=== PATIENT | male | born 1955 | race Caucasian/White ===

== ENCOUNTER 2017-10-14 18:19 | Emergency (ER) | payer BC ==
[2017-10-14] MEDS ORDERED: Lidocaine 1% with EPINEPHrine 1:100,000 50 ML MDV SUBCUT STA (18:26)
[2017-10-14] MEDS ORDERED: Bacitracin Oint 1 GM U/D Packet TOP ONE (18:26)
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
[2017-10-14] MEDS ORDERED: Diphtheria,Pertussis(Acell),Tetanus Vaccine 0.5 ML SDV IM ONE (19:05)
[2017-10-14] MEDS ORDERED: cefTRIAXone 1 GM Vial IM ONE (19:31)
[2017-10-14] MEDS ORDERED: cefTRIAXone 1 GM, Lidocaine 1% 2.1 ML IM ONE ×2 (19:33)
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
--- NOTE | 2017-10-18 10:05 | OR ---
DATE OF PROCEDURE: 10/14/2017 PROCEDURE: Repair of complicated chainsaw injury, left leg, 15.1 cm ([id number], [id number] x 2). COMPLICATIONS: None. 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 FINDINGS: Full thickness through the fascia, injury of the left lower leg due to chainsaw injury with necrotic tissue and foreign bodies noted. PROCEDURE IN DETAIL: The patient was placed in supine position. The left injury was inspected and measured to that size. This was anesthetized with lidocaine. This was inspected and immediately there was foreign material consistent with wood or chips from a chainsaw. These were irrigated and removed. The patient also had some necrotic tissue on his edges, which were debrided with a 15 blade. After a thorough irrigation and anesthetizing with 1% lidocaine with epinephrine, the fascia was then closed. The muscle was then reapproximated with 3-0 Vicryl. Both of these were closed with 3-0 Vicryl. Subcutaneous tissue was then closed with 3-0 Vicryl, and the skin was closed with a combination of horizontal mattress sutures of 3-0 and 2-0 Prolene, and running stitches of 2- 0 Prolene. Dressings were applied. The patient tolerated the procedure well. Pato Mckenzie MD /[id number]
== END 2017-10-14 20:06 | disposition home or self-care (01) ==
LOC: JP.ED 18:19
DX: S71.112A Laceration without foreign body, left thigh, initial encounter (principal); Z79.84 Long term (current) use of oral hypoglycemic drugs; Z23 Encounter for immunization; Z79.899 Other long term (current) drug therapy; W29.3XXA Contact with powered garden and outdoor hand tools and machinery, initial encounter
CPT/HCPCS: 13121; 13122; 90471; 90715; 96372; 99283; J0696